=== PATIENT | female | born 1955 | race Caucasian/White ===

== ENCOUNTER 2024-12-01 14:27 | Emergency (ER) | payer BC, SELFPAY ==
--- NOTE | ~2024-12-01 | CT_ITS ---
EXAMINATION: CT HEAD WITHOUT CONTRAST CLINICAL INFORMATION: Fall with head strike. COMPARISON: None available. TECHNIQUE: Contiguous axial imaging was performed from the skull base to vertex without intravenous administration of contrast. This CT examination was performed using dose optimization techniques as appropriate, variously including the following: *Automated exposure control *Adjustment of mA and/or kV according to patient size (this includes techniques or standardized protocols for targeted exams where dose is matched to indication/reason for exam; i.e. extremities or head) *Use of iterative reconstruction technique FINDINGS: There is no evidence of intracranial hemorrhage or extra-axial fluid collection. There is no mass effect, or edema. No CT evidence of acute territorial infarct. Ventricles, sulci, and cisterns are normal in size and configuration for patient age. No hydrocephalus. No midline shift. Prominent cisterna magna, normal variant. Negative hyperdense MCA sign. Negative insular ribbon sign. No significant white matter abnormalities. Normal pituitary. Mild atheromatous calcification of the bilateral carotid siphons. Globes and orbital contents image normally. No extracranial soft tissue abnormalities. The paranasal sinuses, mastoid air cells, and tympanic cavities are normally aerated. No suspicious bony abnormalities. There are no acute fractures evident. CT/CT head/brain wo IV con IMPRESSION: No acute intracranial abnormality. No fracture evident. Electronically signed by: Kerwin Morel MD 12/01/2024 03:11 PM EDT
--- NOTE | ~2024-12-01 | CT_ITS ---
EXAMINATION: CT CERVICAL SPINE WITHOUT CONTRAST CLINICAL INFORMATION: Status post fall. COMPARISON: None available. TECHNIQUE: Contiguous axial images through the cervical spine using 3 mm collimation with bone and soft tissue algorithm. Sagittal and coronal reformatted images acquired on bone algorithm. This CT examination was performed using dose optimization techniques as appropriate, variously including the following: *Automated exposure control *Adjustment of mA and/or kV according to patient size (this includes techniques or standardized protocols for targeted exams where dose is matched to indication/reason for exam; i.e. extremities or head) *Use of iterative reconstruction technique DLP: 192.07 mGy centimeter. FINDINGS: Craniocervical junction is intact with normal alignment between the occipital condyles and lateral masses of C1. Marginal osteophyte formation and subchondral cyst formation, endplate sclerosis, decreased intervertebral disc height from C3-4 to C6-7 levels more pronounced at C5-6 and C6-7. Grade 1 anterolisthesis C3-4, C4-5 and C7-T1. Multilevel facet joint hypertrophy. Degenerative changes in the periodontal C1 region. C1 is intact. C2 is intact. C3 is intact. C4 is intact. C5 is intact. C6 is intact. C7 is intact. No prevertebral compartment hematoma. Retropharyngeal trajectory right ICA. Tympanic cavities and mastoid cells are aerated. Punctate calcifications in the palatine tonsils. Secretions in the vallecula. CT/CT cervical spine wo IV con IMPRESSION: Multilevel cervical spondylosis C3 C7 without acute fracture or trauma-related listhesis. Fleischner guidelines were followed. Electronically signed by: Callum Morales MD 12/01/2024 03:13 PM EDT
--- NOTE | ~2024-12-01 | XR_ITS ---
EXAMINATION: XR SHOULDER, RIGHT CLINICAL INFORMATION: pain, injury COMPARISON: None available. TECHNIQUE: AP external rotation, Grashey, scapular Y, and axillary views of the right shoulder. FINDINGS: Normal bone mineralization. No fracture, dislocation, or suspicious bone lesion. Normal alignment. The glenohumeral joint is normal. The AC joint is normal. There is a type II acromion. No undersurface spurring. The subacromial space is preserved. Remainder of the soft tissue and bony structures appear normal. XR/XR shoulder RT min 2V IMPRESSION: No acute bony abnormalities of the right shoulder. Electronically signed by: Kerwin Morel MD 12/01/2024 03:53 PM EDT
--- NOTE | 2024-12-01 14:36 | ED_ITS ---
HPI - General Adult General Chief complaint: Fall Stated complaint: Fall down 7 steps, no LOC, collared Time Seen by Provider: 12/01/24 14:35 Source: patient and EMS Mode of arrival: EMS Limitations: no limitations History of Present Illness ED Provider: Lillie Rose PA-C HPI narrative: Patient is a 69 year old assigned female at with no reported medical history presenting to the emergency department today with right sided neck and shoulder pain after a fall. Patient states that she missed a handrail and fell down approximately 7 stairs. Patient states that she did hit her head but had no loss of consciousness. Patient states that she landed on her right sided and the right shoulder and right neck are what hurt. Patient denies any dizziness, lightheadedness, abdominal pain, nausea, vomiting, fever, chills, blurry vision, double vision, loss of vision, chest pain, difficulty breathing, shortness of breath, back pain, night sweats, pain with urination, increased urinary frequency, increased urinary urgency, blood in her urine or stool, syncope or a near syncopal episode, bowel incontinence, bladder incontinence, or any other complaints at this time. Location: neck, right and upper extremity Relieving factors: none Exacerbating factors: none Associated symptoms: denies other symptoms Treatments prior to arrival: none Related Data Previous Rx's ?Medication ?Instructions ?Recorded cyclobenzaprine 5 mg tablet 5 mg PO TID PRN muscle spasm 7 12/01/24 days #21 tabs Allergies Allergy/AdvReac Type Severity Reaction Status Date / Time No Known Allergies Allergy Verified 12/01/24 15:03 Review of Systems Constitutional: Constitutional: Reports no additional constitutional complaints, Denies chills, Denies fever(s) and Denies night sweats Eyes: Eyes: Reports no additional eye complaints, Denies blurry vision, Denies change in vision, Denies diplopia, Denies eye discharge, Denies loss of vision and Denies eye pain ENT: Denies dizziness Comments: right sided neck pain right shoulder pain Cardiovascular: Cardiovascular: Reports no additional cardiovascular complaints, Denies chest pain, Denies lightheadedness, Denies Loss of Consciousness and Denies dyspnea Respiratory: Respiratory: Reports no additional respiratory complaints and Denies dyspnea Gastrointestinal: Gastrointestinal: Reports no additional gastrointestinal complaints, Denies abdominal pain, Denies melena, Denies hematochezia, Denies change in bowel habits and Denies change in stool character Genitourinary: Genitourinary: Denies hematuria, Denies urinary frequency, Denies dysuria, Denies urinary incontinence, Denies urinary hesitancy and Denies urinary urgency Musculoskeletal: Musculoskeletal: Reports no additional musculoskeletal complaints, Denies numbness and Denies tingling Neurologic: Denies dizziness, Denies loss of vision, Denies numbness and Denies tingling Psychiatric: Psychiatric: Reports no additional psychiatric complaints Endocrine: Endocrine: Reports no additional endocrine complaints Hematologic/Lymphatic: Hematologic/Lymphatic: Reports no additional hematologic/lymphatic complaints Allergic/Immunologic: Allergic/Immunologic: Reports no additional allergic/immunologic complaints PMFSH Past Medical History Attestation statement: The following information was validated with the patient. Source: old records reviewed and nursing notes reviewed Social History Social History Smoked in Last 30 Days: No Use of substances other than those prescribed or required for medical reasons: No Advance Directives: No Advance Directives Information Provided: No Do you have a plan to hurt others: No Plan Physical Exam ED Vital Signs: Vital Signs - 24 hr 12/01/24 14:43 12/01/24 14:50 12/01/24 16:24 Temperature 98.1 F 98.1 F 98.1 F Pulse Rate 70 70 70 Respiratory Rate 18 18 18 Blood Pressure 124/60 124/60 124/60 Pulse Oximetry 100 100 100 Oxygen Delivery Method Room Air Room Air Room Air BMI result Body Mass Index 25.9 Const General: cooperative, no acute distress, alert and awake Nutritional Appearance: well nourished Orientation/consciousness: patient oriented x3 HENMT Head: Yes normal to inspection and Yes atraumatic Ears: hearing grossly normal bilaterally and external ears normal General nose exam: Normal external nose present, no nasal discharge noted and no epistaxis Face and sinus: Yes normal facial exam, No abrasion and No laceration Mouth: Normal oral and palatal mucosa present, no drooling and no muffled voice Eyes General: appearance normal, both eyes and all related structures Periorbital: periorbital findings normal Eyelids: Yes eyelids normal Conjunctivae: conjunctivae normal Pupils: Equal, round and reactive pupils present EOM: EOMs intact bilaterally Neck Neck: Yes normal visual inspection, Yes full ROM (performed after negative c- spine CT scan read.) and Yes no lymphadenopathy Resp Effort & Inspection: normal respiratory effort and able to speak in complete sentences Neuro General: patient oriented x3, moves all extremities and CN's II-XI intact bilaterally Cranial nerves: Yes Equal, round and reactive pupils present Cognition (Neuro): normal cognition Extrem General: Yes normal to inspection, Yes full ROM and Yes capillary refill normal Psych Appearance: grossly normal Mental Status: mental status grossly normal Affect: normal affect Attitude: cooperative Thought process: Normal thought process present Thought content: Normal thought content present Insight: Good insight present (Psych) Medical Decision Making Medical Decision Making MDM Narrative: Patient is a 69 year old assigned female at with no reported medical history presenting to the emergency department today with right sided neck and shoulder pain after a fall. Patient's physical exam was unremarkable. Patient's right shoulder x-ray, head CT, and c-spine CT showed no acute process. I explained my physical exam findings as well as all test results to the patient. I answered all questions asked by the patient. I stressed the importance of the patient taking her medication as directed (either prescribed or as the over the counter packaging recommends). I stressed the importance of the patient following up with her primary care provider. I stressed the importance of the patient returning to the emergency department immediately if her symptoms were to worsen or if she were to develop any dizziness, shortness of breath, difficulty breathing, chest pain, blurry vision, loss of vision, nausea, vomiting, abdominal pain, fever, chills, back pain, or any other complaints. Patient verbalized agreement and understanding with this treatment plan and discharge. Differential Diagnosis Differential Diagnoses: The differential diagnosis associated with the presentation includes Right sided neck pain Right shoulder pain Cervical strain Shoulder strain / sprain Admission/Observation Consideration of admission/observation: Escalation of care including admission/observation considered Patient would have been admitted to the hospital had her work up had any findings where hospital admission was appropriate and her clinical presentation warranted hospital admission. Independent Interpretation I performed an independent interpretation of an: Plain X-Ray (right shoulder) and CT Scan (head and c-spine) Interpretation: My interpretation is in agreement with the radiologist's impression of these imaging studies. Report Number: [id number]: Total DLP = 192.00 mGy-cm EXAMINATION: CT CERVICAL SPINE WITHOUT CONTRAST CLINICAL INFORMATION: Status post fall. COMPARISON: None available. TECHNIQUE: Contiguous axial images through the cervical spine using 3 mm collimation with bone and soft tissue algorithm. Sagittal and coronal reformatted images acquired on bone algorithm. This CT examination was performed using dose optimization techniques as appropriate, variously including the following: *Automated exposure control *Adjustment of mA and/or kV according to patient size (this includes techniques or standardized protocols for targeted exams where dose is matched to indication/reason for exam; i.e. extremities or head) *Use of iterative reconstruction technique DLP: 192.07 mGy centimeter. FINDINGS: Craniocervical junction is intact with normal alignment between the occipital condyles and lateral masses of C1. Marginal osteophyte formation and subchondral cyst formation, endplate sclerosis, decreased intervertebral disc height from C3-4 to C6-7 levels more pronounced at C5-6 and C6-7. Grade 1 anterolisthesis C3-4, C4-5 and C7-T1. Multilevel facet joint hypertrophy. Degenerative changes in the periodontal C1 region. C1 is intact. C2 is intact. C3 is intact. C4 is intact. C5 is intact. C6 is intact. C7 is intact. No prevertebral compartment hematoma. Retropharyngeal trajectory right ICA. Tympanic cavities and mastoid cells are aerated. Punctate calcifications in the palatine tonsils. Secretions in the vallecula. CT/CT cervical spine wo IV con IMPRESSION: Multilevel cervical spondylosis C3 C7 without acute fracture or trauma-related listhesis. Fleischner guidelines were followed. Electronically signed by: Callum Morales MD 12/01/2024 03:13 PM EDT Dictated By: Callum Kelley MD Signed By: Electronically signed by Callum Leal MD 12/01/24 1513 Report Number: [id number]: Total DLP = 598.00 mGy-cm EXAMINATION: CT HEAD WITHOUT CONTRAST CLINICAL INFORMATION: Fall with head strike. COMPARISON: None available. TECHNIQUE: Contiguous axial imaging was performed from the skull base to vertex without intravenous administration of contrast. This CT examination was performed using dose optimization techniques as appropriate, variously including the following: *Automated exposure control *Adjustment of mA and/or kV according to patient size (this includes techniques or standardized protocols for targeted exams where dose is matched to indication/reason for exam; i.e. extremities or head) *Use of iterative reconstruction technique FINDINGS: There is no evidence of intracranial hemorrhage or extra-axial fluid collection. There is no mass effect, or edema. No CT evidence of acute territorial infarct. Ventricles, sulci, and cisterns are normal in size and configuration for patient age. No hydrocephalus. No midline shift. Prominent cisterna magna, normal variant. Negative hyperdense MCA sign. Negative insular ribbon sign. No significant white matter abnormalities. Normal pituitary. Mild atheromatous calcification of the bilateral carotid siphons. Globes and orbital contents image normally. No extracranial soft tissue abnormalities. The paranasal sinuses, mastoid air cells, and tympanic cavities are normally aerated. No suspicious bony abnormalities. There are no acute fractures evident. CT/CT head/brain wo IV con IMPRESSION: No acute intracranial abnormality. No fracture evident. Electronically signed by: Kerwin Morel MD 12/01/2024 03:11 PM EDT Dictated By: Kerwin Morel MD Signed By: Electronically signed by Kerwin Morel MD 12/01/24 1511 EXAMINATION: XR SHOULDER, RIGHT CLINICAL INFORMATION: pain, injury COMPARISON: None available. TECHNIQUE: AP external rotation, Grashey, scapular Y, and axillary views of the right shoulder. FINDINGS: Normal bone mineralization. No fracture, dislocation, or suspicious bone lesion. Normal alignment. The glenohumeral joint is normal. The AC joint is normal. There is a type II acromion. No undersurface spurring. The subacromial space is preserved. Remainder of the soft tissue and bony structures appear normal. XR/XR shoulder RT min 2V IMPRESSION: No acute bony abnormalities of the right shoulder. Electronically signed by: Kerwin Morel MD 12/01/2024 03:53 PM EDT RP Dictated By: Kerwin Morel MD Signed By: Electronically signed by Kerwin Morel MD 12/01/24 1553 Radiology Impression Discussion of test interpretation with radiology: I have reviewed the radiologist's reading. Independent Historian Clinical information obtained from an independent historian. History obtained from or confirmed by: EMS (EMS provided additional history and confirmed the history provided by the patient.) Prescription Management I considered prescription management with: Pain Medication (patient prescribed flexeril) Discharge Plan Discharge Clinical Impression: Fall, Cervical muscle strain Patient Disposition: Home, Self-Care Instructions: Cervical Sprain (ED), Fall Prevention (ED) Additional Instructions: Follow up with your primary care provider. Return to the emergency department immediately if your symptoms worsen or if you develop any numbness, tingling, dizziness, shortness of breath, difficulty breathing, chest pain, blurry vision, loss of vision, nausea, vomiting, abdominal pain, fever, chills, back pain, or any other complaints. Please see the information below about our Patient Portal. If you are not yet enrolled in the [facility] Patient Portal, you will receive an enrollment email invitation following your visit to any [facility] setting. You may also self-enroll in the Patient Portal by visiting our website: [email or web address] The following information is required to access the Patient Portal: - Your [facility] Medical Record Number - Your personal home email address (must match what is in your electronic medical record, Registration staff can assist with this) - Name - Date of Capabilities of the Patient Portal: - Message some providers - View upcoming appointments - Access your health summary, medical history, and visit history - View current conditions and allergies - View procedure and lab results - View your medications, including guidelines, side effects, and precautions - Complete pre-appointment questionnaires requested by your provider - Ready summary reports of your office visits and procedures To access the Patient Portal Mobile [employer], follow these directions: - Search [employer] in the [employer] Store or [employer] Store - Download the [place] - Search for [facility] - Enter your login/password Prescriptions: New cyclobenzaprine 5 mg tablet 5 mg PO TID PRN (Reason: muscle spasm) 7 Days Qty: 21 0RF Referrals: [facility] [Provider Group] (Call to establish and follow up with a primary care provider. If you already have a primary care provider, pl ease follow up with them.) [facility] [Provider Group] (Call to establish and follow up with a primary care provider. If you already have a primary care provider, please follow up with them.) [facility] Family Medicine [Provider Group] (Call to establish and follow up with a primary care provider. If you already have a primary care provider, please follow up with them.) [facility] Primary [facility], [place] [Provider Group] (Call to establish and follow up with a primary care provider. If you already have a primary care provider, please follow up with them.) [facility] Primary [facility], [place] [Provider Group] (Call to establish and follow up with a primary care provider. If you already have a primary care provider, please follow up with them.) Interventions: ED Discharge Assessment Last Done: 12/01/24 16:24 Discharge Date/Time: 12/01/24 16:24 Print Language: Libyan
[2024-12-01 14:43] VITALS: BP 124/60; PULSE 70; RESP 18; TEMP 36.7; O2SAT 100
[2024-12-01 14:49] VITALS: BP 120/70; PULSE 74; O2SAT 94
[2024-12-01 14:50] VITALS: BP 124/60; PULSE 70; RESP 18; TEMP 36.7; O2SAT 100; BMI 25.9
--- OUTSIDE RECORDS SUMMARY | 2024-12-01 16:14 | XMS_ITS | Data Portability ---
Author Organization [facility], , [facility] Address [address] [place] [address] Care Team Providers Care Game Design Instructor Name Role Phone ALMA ROSA RIBERA Primary Care Provider Assessment No assessment recorded. Plan of Treatment Reminders Order Date Submit Date Provider Last Modified By Organization Details Last Modified Time Details Appointments None recorded. Lab hepatitis C virus Ab, serum 2015 016 [facility], [address] [place] [address], [id number], 6 06:24:05 TSH, serum or plasma 2015 016 [facility], [address] [place] [address], [id number], 6 15:57:53 CBC 2015 016 [facility], [address] [place] [address], [id number], 6 15:10:28 vitamin B12, serum 2015 016 [facility], [address] [place] [address], [id number], 6 16:30:38 vitamin D, 25-hydroxy , total, serum 2015 016 [facility], [address] [place] [address], [id number], 6 13:19:22 BMP, serum or plasma 2015 016 [facility], [address] [place] [address], [id number], 6 15:40:26 Referral None recorded. Procedures None recorded. Surgeries None recorded. Imaging MAMMO, screening, digital, bilateral 2015 016 [email or web address] [facility] (Imaging), [address] [place] [address] [place], [address], 6 14:42:25 Medication Orders None recorded. Patient TargetsNo targets recorded. Patient Instructions Encounter Date Encounter Id Patient Instructions Last Modified By Organization Details Last Modified Time 11/29/2015 [id number] Read in another room before bed, not in the bed. No TV in the bedroom! No TV, computer, iPad, phone 30-60 min prior to bed, consider f-lux for computer Turn down ambient light in house 1 hour before bed, avoid fluorescents Develop a routine and stick to it Herbal tea 30 to 120 min before bed, avoid too much volume though Consider a ? W orry Journal? to be done 1 hour before bed Bedroom should be Cool, Quiet, Dark and Safe feeling Avoid exercise late in the evening Conceal clocks in the bedroom Continue this routine even on Weekends [email or web address] Not available 11/29/2015 09:58:24 After a discussi on of treatment options, which included consideration of best practices and patient preferences, the following treatment plan and objectives were adopted: as above. [email or web address] Not available 11/29/2015 13:37:28 Reason for Referral None Reported. Results Created Date Observation Date Name Description Value Unit Range Abnormal Flag Note LastModifiedBy Organization Detail LastModifiedTime 11/29/19 16 11/29/2015 CBC WBC 4.9 K/? ? ?L 4.0-10 .0 Not Available [address], [address], 11/29/2015 15:10:28 11/29/19 16 11/29/2015 CBC RBC 3.87 M/? ? ?L 3.93-5 .22 low Not Available [address], [address], 11/29/2015 15:10:28 11/29/19 16 11/29/2015 CBC HGB 13.0 g/dL 11.2-1 5.7 Not Available [address], [address], 11/29/2015 15:10:28 11/29/19 16 11/29/2015 CBC HCT 38.8 % 34.1-4 4.9 Not Available [address], [address], 11/29/2015 15:10:28 11/29/19 16 11/29/2015 CBC MCV 100.3 ? ? ?L 79.4-9 4.8 high Not Available [address], [address], 11/29/2015 15:10:28 11/29/19 16 11/29/2015 CBC MCH 33.6 pg 25.6-3 2.2 high Not Available [address], [address], 11/29/2015 15:10:28 11/29/19 16 11/29/2015 CBC MCHC 33.5 g/dL 32.2-3 5.5 Not Available [address], [address], 11/29/2015 15:10:28 11/29/19 16 11/29/2015 CBC plt 222.0 K/? ? ?L 182.0- 369.0 Not Available [address], [address], 11/29/2015 15:10:28 11/29/19 16 11/29/2015 CBC MPV 11.6 9.4-12 .3 Not Available [address], [address], 11/29/2015 15:10:28 11/29/19 16 11/29/2015 CBC neut% 61.6 % 34.0-7 1.1 Not Available [address], [address], 11/29/2015 15:10:28 11/29/19 16 11/29/2015 CBC neut# 3.0 1.6-6. 1 Not Available [address], [address], 11/29/2015 15:10:28 11/29/19 16 11/29/2015 CBC lymph % 27.7 % 19.3-5 1.7 Not Available [address], [address], 11/29/2015 15:10:28 11/29/19 16 11/29/2015 CBC lymph # 1.4 K/? ? ?L 1.2-3. 7 Not Available [address], [address], 11/29/2015 15:10:28 11/29/19 16 11/29/2015 CBC mono% 7.7 % 4.7-12 .5 Not Available [address], [address], 11/29/2015 15:10:28 11/29/19 16 11/29/2015 CBC mono# 0.4 0.2-0. 6 Not Available [address], [address], 11/29/2015 15:10:28 11/29/19 16 11/29/2015 CBC eo% 2.6 % 0.7-5. 8 Not Available [address], [address], 11/29/2015 15:10:28 11/29/19 16 11/29/2015 CBC eo# 0.1 0.0-0. 4 Not Available [address], [address], 11/29/2015 15:10:28 11/29/19 16 11/29/2015 CBC baso% 0.4 % 0.1-1. 2 Not Available [address], [address], 11/29/2015 15:10:28 11/29/19 16 11/29/2015 CBC baso# 0.0 0.0-0. 1 Not Available [address], [address], 11/29/2015 15:10:28 11/29/19 16 11/29/2015 CBC RDW-CV 13.3 % 11.7-1 4.4 Not Available [address], [address], 11/29/2015 15:10:28 11/29/19 16 11/29/2015 BMP, serum or plasm a glucose 75 mg/dL 70-100 Not Available [address], [address], 11/29/2015 15:40:26 11/29/19 16 11/29/2015 BMP, serum or plasm a BUN 15 mg/dL 7-18 Not Available [address], [address], 11/29/2015 15:40:26 11/29/19 16 11/29/2015 BMP, serum or plasm a creatinine 0.8 mg/dL 0.8-1. 3 Not Available [address], [address], 11/29/2015 15:40:26 11/29/19 16 11/29/2015 BMP, serum or plasm a B/C 18.8 ratio Not Available [address], [address], 11/29/2015 15:40:26 11/29/19 16 11/29/2015 BMP, serum or plasm a GFR -non 82.2 mL/mi n Recom misael d GFR by the Natio nal Kidne y Found ation >60 mL/mi n/1.7 3m2 - Cecilia l <60 mL/mi n/1.7 3m2 - Chron ic Kidne y Disea se <15 mL/mi n/1.7 3m2 - Kidne y Failu re Not Available [address], [address], 11/29/2015 15:40:26 11/29/19 16 11/29/2015 BMP, serum or plasm a GFR - if 94.6 mL/mi n For Afric an Ameri can patie nts: Resul ts Multi plied by 1.21 Not Available [address], [address], 11/29/2015 15:40:11/29/19 16 11/29/2015 BMP, serum or plasm a sodium 143 mmol/ L 136-14 5 Not Available [address], [address], 11/29/2015 15:40:11/29/19 16 11/29/2015 BMP, serum or plasm a potassium 3.4 mmol/ L 3.5-5. 1 low MAE=V erifi ed by Carlos flores Not Available [address], [address], 11/29/2015 15:40:26 11/29/19 16 11/29/2015 BMP, serum or plasm a chloride 105 mmol/ L 96-107 Not Available [address], [address], 11/29/2015 15:40:26 11/29/19 16 11/29/2015 BMP, serum or plasm a anion gap 6.5 5.0-15 .0 Not Available [address], [address], 11/29/2015 15:40:26 11/29/19 16 11/29/2015 BMP, serum or plasm a CO2 32 mmol/ L 21-32 Not Available [address], [address], 11/29/2015 15:40:26 11/29/19 16 11/29/2015 BMP, serum or plasm a calcium 8.8 mg/dL 8.5-10 .3 Not Available [address], [address], 11/29/2015 15:40:26 11/29/19 16 11/29/2015 TSH, serum or plasm a TSH 2.61 uIU/m L 0.50-6 .00 The Ameri can Colle ge of Endoc rinol ogy and Ameri can Thyro id Assoc iatio n recom mend goal TSH value s betwe en 0.4-4 .0 mIU/m L. Not Available [address], [address], 11/29/2015 15:57:53 11/29/19 16 11/29/2015 vitam in B12, serum vitamin B12 364 pg/mL 230-10 50 Not Available [address], [address], 11/29/2015 16:30:38 11/29/19 16 11/30/2015 hepat itis C virus Ab, serum hepatitis C antibody NON-RE ACTIVE non-re active normal Not Available [facility] [address], [address], 11/30/2015 06:24:05 11/29/19 16 11/30/2015 hepat itis C virus Ab, serum signal to cut-off 0.12 <1.00 normal Not Available [facility] [address], [address], 11/30/2015 06:24:05 11/29/19 16 11/30/2015 iron + total iron- suzie ng capac ity (TIBC ), serum iron 132 ug/dL 35-150 Not Available [address], [address], 11/30/2015 16:03:40 11/29/19 16 11/30/2015 iron + total iron- suzie ng capac ity (TIBC ), serum T.I.B.C. 283 ug/dL 250-45 0 Not Available [address], [address], 11/30/2015 16:03:40 11/29/19 16 11/30/2015 iron + total iron- suzie ng capac ity (TIBC ), serum % saturation 46.6 % Not Available [address], [address], 11/30/2015 16:03:40 11/29/19 16 12/05/2015 vitam in D, 25-hy droxy , total , serum vitamin D 25-hydroxy EIA 34.3 NG/mL 20.0-9 9.9 Thera py is based on measu remen t of total 25-OH D, with level s less than 20 ng/mL indic ative of Vitam in D defic iency . Level s betwe en 20ng/ mL and 30 ng/mL sugge st insuf ficie ncy. Optim al Level s are great er than 30 ng/mL . Not Available [address], [address], 12/05/2015 13:19:22 12/06/19 16 12/06/2015 folat e, serum folate 20 NG/mL 3-16 high Not Available [address], [address], 12/06/2015 16:39:16 12/06/19 16 12/12/2015 vitam in B1 (thia mine) , blood vitamin B1 (thiamine), lc/MS/MS 22 nmol/ L 8-30 Not Available [facility] [address] [place] [address], [address], 12/12/2015 11:15:15 Result Notes None recorded. Problems Name Problem SNOMED Code Status Onset Date Resolution Date Notes Provider Name and Address Organization Details Recorded Time Open angle with borderline findings Active 2004 Alma Rosa Ribera MD [address] [place], [place] [address] [place], [address], [facility] 6 09:43:46 Visual disturbance 18861554 Active 2004 Alma Rosa Ribera MD [address] [place], [place] [address], [address], [facility] 6 09:43:46 Borderline glaucoma Active 2004 Alma Rosa Ribera MD [address] [facility] [place], [address], [facility] 6 09:43:46 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 Medical Equipment None Reported. Allergies No known drug allergies Medications Not known to be on any medication Vitals Date Recorded Body mass index (BMI) Body height Body weight Respiratory rate Heart rate Systolic blood pressure Diastolic blood pressure Provider Name and Address Organization Details Last Updated DateTime 6 23.7 kg/m2 154.94 cm 75784.8 89745 g 10 /min 68 /min 122 mm[Hg] 64 mm[Hg] Renee Paige LPN [facility] 6 09:37:31 Social History Question Answer Notes LastModified by Organizat ion Details LastModified Time Tobacco Smoking Status Never Smoker [facility] [place] 11/29/2015 09:35:05 Do You Wear A Helmet When Biking? Yes Information not available 11/29/2015 What Is Your Level Of Caffeine Consumption? Moderate 2 Cups Per Day Information not available 11/29/2015 How Much Tobacco Do You Chew? None Information not available 11/29/2015 What Type Of Diet Are You Following? VEGETARIAN Information not available 11/29/2015 Education Post Graduate Information not available 11/29/2015 How Many Days In The Past Year Have You Had A Heavy Drinking Consumption (4+ Female, 5+ Male)? 2 Information not available 11/29/2015 Are There Any Guns Present In Your Home? No Information not available 11/29/2015 Live Alone Or With Others? Alone Information not available 11/29/2015 Marital Status Single Informatio n not available 11/29/2015 Mosquito Repellent Used Routinely No Information not available 11/29/2015 How Many Children Do You Have? 0 ziarz Information not available 11/29/2015 Are There Any Occupational Health Risks Where You Work? [place] smajose Information not available 11/29/2015 Seat Belts Used Routinely Yes Information not available 11/29/2015 Are You Sexually Active? No [email or web address] Information not available 11/29/2015 Smoke Alarm In Home Yes Information not available 11/29/2015 What Types Of Sporting Activities Do You Participate In? None Information not available 11/29/2015 General Stress Level Low Information not available 11/29/2015 Do You Use Sunscreen Routinely? Yes Information not available 11/29/2015 Sex: Unknown Functional Status Question Answer Note LastModified by Organizat ion Details LastModified Time What is your level of alcohol consumption? 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 Family History Relationship Description Onset Age of this Age Resolved Age Notes LastModified by Organization Details LastModified Time Mother Well adult age 84 [email or web address] Not availab le 11/29/2015 09:49:03 Mother Thyroidectom y benign lump, remove d thyroi d [email or web address] Not available 11/29/2015 09:49:03 Father Coronary arterioscler osis stent jdepiero Not available 2015 09:49:03 Paternal Grandfather Myocardial infarction 65 lived to age 86 [email or web address] Not available 11/29/2015 09:49:03 Notes:parents live together independently in their 80s Medical History Condition Response SKIN Gynecological History Statement/Question Response Hysterectomy N History of Abnormal Pap N Obstetrics History GPAL:G 0 P 0 0 0 0 Past Encounters Encounter ID Performer Location Encounter Start Date Encounter Closed Date Diagnosis/Indication Diagnosis SNOMED-CT Code Diagnosis ICD10 Code Diagnosis Note [id number] Philippe García OD [facility], [facility] [address] [place] [address] 01/28/2005 08:43:14 01/29/2005 08:30:57 [id number] Philippe García OD [facility], [facility] [address] [place] [address] 02/18/2005 16:39:11 02/21/2005 08:26:45 [id number] Alma Rosa Ribera MD , [facility], OFFICE [address] [place] [address] 11/29/2015 09:06:29 11/29/2015 10:01:22 Screening for disorder 460223680 Z11.59 Screening mammography 24 910963 Z12.31 Fatigue 48227952 R53.83 no associated sx screening below sleep hygiene, stress mgmt, nutrition advised Anterior knee pain 38846 3006 M25.562 norml exam likely strain advised supportive mgmt, ice/elevat e/nsaids as needed f/u if not improvemen ts Health Concerns Section Related Observation LastModified by Organization Detai ls LastModified Time None Recorded Concern Status LastModified by Organization Details LastModified Time None Recorded Advance Directives Directive None Recorded Payers Encounter Date Sequence Insurance Name Policy Number Policy Champagne Covered Member ID Champagne Member ID Guarantor Name 01/28/2005 1 [place] [facility] [id number] Arti Poon 02/18/2005 1 [place] Arti Poon [id number] Artinoah Poon 11/29/2015 1 [place] [facility] [id number] 1 Artinoah Poon Notes Date Note Type Note Provider Name and Address Organization Details Recorded Time 11/29/2015 text/html Here to [facility]. Doesn't go to doctor very often. Has been feeling exhausted lately. A few months. Stays about the same. Doesn't sleep well, but this isn't new. Works outside the home, military administrative technician, program eligibility specialist. Unemployed currently, working for [employer], assignment just ended. Has no pain, no dry skin, hair not falling out, n/v, CP, SOB, cough. Feels winded more easily. Hasn't been working out/going to gym. Has gained some weight. Stopped working out a month ago because of fatigue. No history of depression or anxiety. Alma Rosa Ribera MD [address] [place] [address], [phone], [facility] 11/29/2015 13:37:30 OBGyn Episode No OBEpisode recorded.
[2024-12-01 16:24] VITALS: BP 124/60; PULSE 70; RESP 18; TEMP 36.7; O2SAT 100
== END 2024-12-01 16:24 | disposition home or self-care (01) ==
PROVIDERS: Emergency Provider Emergency Medicine
DX: S16.1XXA Strain of muscle, fascia and tendon at neck level, initial encounter (principal); W10.8XXA Fall (on) (from) other stairs and steps, initial encounter; Y93.9 Activity, unspecified; Y92.9 Unspecified place or not applicable; Y99.9 Unspecified external cause status
CPT/HCPCS: 70450; 72125; 73030; 99284

== ENCOUNTER → 2024-12-01 14:37 | Outpatient (BNV) | payer BC, SELFPAY | PROVIDERS: Visit Provider Radiology Diagnostic Radiology | DX: M47.892 Other spondylosis, cervical region (principal); S09.90XA Unspecified injury of head, initial encounter; M25.511 Pain in right shoulder | CPT/HCPCS: 70450; 72125; 73030 ==